=== PATIENT | female | born 2000 | race Caucasian/White ===

== ENCOUNTER 2019-06-17 20:28 | Emergency (ER) | payer OTHER ==
[~2019-06-17] VITALS: Ht 167.6 cm; Wt 63.6 kg
[2019-06-17 21:01] VITALS: BP 139/86; TEMP 98.9
[2019-06-17] MEDS ORDERED: birth control (21:30)
[2019-06-17] MEDS ORDERED: ZITHROMAX Z PA250 MG PO (22:44)
[2019-06-17 22:54] VITALS: PULSE 63
== END 2019-06-17 22:59 | disposition home or self-care (01) ==
LOC: COL.ER 20:28
DX: R07.89 Other chest pain (principal)